=== PATIENT | female | born 1935 | race Caucasian/White ===

== ENCOUNTER 2019-10-11 16:43 | Outpatient (CLI) | payer MEDICARE, OTHER | END 2019-10-11 16:44 | disposition home or self-care (01) | LOC: COV 16:43 | PROVIDERS: ATTEND Family Medicine | DX: R53.83 Other fatigue (principal); R09.81 Nasal congestion; Z20.828 Contact with and (suspected) exposure to other viral communicable diseases ==

== ENCOUNTER 2023-01-10 12:21 | Outpatient (CLI) | payer MEDICARE, OTHER ==
[2023-01-10 13:04] LABS: CALCIUM 9.5 mg/dL (8.5-10.3); CREATININE 0.7 mg/dL (0.6-1.3); POTASSIUM 4.5 mmol/L (3.5-4.5)
== END 2023-01-10 12:22 | disposition home or self-care (01) ==
LOC: LAB 12:21
PROVIDERS: ATTEND Family Medicine
DX: U07.1 COVID-19 (principal)
CPT/HCPCS: 36415; 80048